=== PATIENT | male | born 1975 | race Caucasian/White ===

== ENCOUNTER 2017-01-29 14:38 | Observation (INO) | payer BC ==
[2017-01-29] MEDS ORDERED: MORPHINE SULFATE 10 MG/ML INJ IV ONE (15:25)
[2017-01-29] MEDS ORDERED: NORMAL SALINE 1000 ML 1,000 ML IV ONE (15:25)
--- NOTE | 2017-01-29 15:26 | ER Document Report ---
ED Medical Screen (RME) - General Chief Complaint: Abdominal Pain Stated Complaint: ABDOMINAL PAIN Time Seen by Provider: 01/29/17 15:24 Notes: Patient states he was sent here by his primary care doctor. He states he has had bloating and abdominal pain with vomiting and diarrhea for several days. He states an x-ray was done at his doctor's office and he was told by his physician that he may have a bowel obstruction. He is told that he was to come the emergency department for a abdominal CT scan. TRAVEL OUTSIDE OF THE [place] IN LAST 30 DAYS: No - Related Data Allergies/Adverse Reactions: No Known Allergies Allergy (Verified 01/29/17 14:38) Past Medical History - Social History Chew tobacco use (# tins/day): Yes Frequency of alcohol use: None Drug Abuse: None Renal/ Medical History: Denies: Hx Peritoneal Dialysis Physical Exam - Vital signs Vitals: Temp Pulse Resp BP Pulse Ox 99.4 F 88 20 136/97 H 94 01/29/17 14:44 01/29/17 14:44 01/29/17 14:44 01/29/17 14:44 01/29/17 14:44 Course - Vital Signs Vital signs: Temp Pulse Resp BP Pulse Ox 99.4 F 88 20 136/97 H 94 01/29/17 14:44 01/29/17 14:44 01/29/17 14:44 01/29/17 14:44 01/29/17 14:44
[2017-01-29] MEDS ORDERED: ONDANSETRON HCL INJ/PF 4 MG/2 ML SDV IV ONE (15:44)
[2017-01-29 16:06] LABS: ABSOLUTE BASOPHILS # (AUTO) 0.1 10^3/uL (0.0-0.2); ABSOLUTE EOSINOPHILS # (AUTO) 0.1 10^3/uL (0.0-0.6); ABSOLUTE LYMPHOCYTES (AUTO) 1.7 10^3/uL (0.5-4.7); ABSOLUTE MONOCYTES (AUTO) 0.9 10^3/uL (0.1-1.4); ABSOLUTE NEUT (AUTO) 10.3 10^3/uL (1.7-8.2); BASOPHILS % (AUTO) 0.4 % (0-2); EOSINOPHILS % (AUTO) 0.4 % (0-6); LYMPHOCYTES % (AUTO) 13.4 % (13-45); MEAN CORPUSCULAR HGB CONC 34.7 g/dL (32.0-36.0); MEAN CORPUSCULAR VOLUME 87 fl (80-97); MONOCYTES % (AUTO) 7.1 % (3-13); RED BLOOD COUNT 5.66 10^6/uL (4.35-5.55); RED CELL DISTRIBUTION WIDTH 13.7 % (11.5-14.0); SEGMENTED NEUTROPHILS % (AUTO) 78.7 % (42-78)
[2017-01-29] MEDS ORDERED: NORMAL SALINE 1000 ML 1,000 ML IV PRN ×3 (16:16→19:46)
--- NOTE | 2017-01-29 16:19 | ER Document Report ---
ED GI/ - General Chief Complaint: Abdominal Pain Stated Complaint: ABDOMINAL PAIN Time Seen by Provider: 01/29/17 15:24 Notes: 41 years old male presents today with over 24 hours of nausea vomiting multiple times. And also had diarrhea multiple times. Seen by the primary care physician had a abdominal x-ray done, the suspected bowel obstruction therefore he was sent over to ED. He denies any fever chills. Having on and off abdominal pain. Denies any dysuria frequency urgency. TRAVEL OUTSIDE OF THE [place] IN LAST 30 DAYS: No - Related Data Allergies/Adverse Reactions: pseudoephedrine Allergy (Verified 01/29/17 16:37) acetaminophen [From Percocet] Adverse Reaction (Verified 01/29/17 16:36) oxycodone [From Percocet] Adverse Reaction (Verified 01/29/17 16:37) Past Medical History - Social History Smoking Status: Never Smoker Chew tobacco use (# tins/day): Yes Frequency of alcohol use: None Drug Abuse: None Family History: Other - Kidney stones Patient has suicidal ideation: No Patient has homicidal ideation: No Renal/ Medical History: Denies: Hx Peritoneal Dialysis Review of Systems - Review of Systems Notes: REVIEW OF SYSTEMS: CONSTITUTIONAL : Denies fever, chills, or sweats. Denies recent illness. EENT: Denies eye, ear, throat, or mouth pain or symptoms. Denies nasal or sinus congestion or discharge. Denies throat, tongue, or mouth swelling or difficulty swallowing. CARDIOVASCULAR: Denies chest pain. Denies palpitations or racing or irregular heart beat. Denies ankle edema. RESPIRATORY: Denies cough, cold, or chest congestion. Denies shortness of breath, difficulty breathing, or wheezing. GASTROINTESTINAL: Denies abdominal pain or distention. Denies nausea, vomiting , or diarrhea. Denies blood in vomitus, stools, or per rectum. Denies black, tarry stools. Denies constipation. GENITOURINARY: Denies difficulty urinating, painful urination, burning, frequency, blood in urine, or discharge. MUSCULOSKELETAL: Denies back or neck pain or stiffness. Denies joint pain or swelling. SKIN: Denies rash, lesions or sores. HEMATOLOGIC : Denies easy bruising or bleeding. LYMPHATIC: Denies swollen, enlarged glands. NEUROLOGICAL: Denies confusion or altered mental status. Denies passing out or loss of consciousness. Denies dizziness or lightheadedness. Denies headache. Denies weakness or paralysis or loss of use of either side. Denies problems with gait or speech. Denies sensory loss, numbness, or tingling. Denies seizures. PSYCHIATRIC: Denies anxiety or stress. Denies depression, suicidal ideation, or homicidal ideation. ALL OTHER SYSTEMS REVIEWED AND NEGATIVE. Dictation was performed using [employer] voice recognition software PHYSICAL EXAMINATION: GENERAL: Well-appearing, well-nourished and in no acute distress. Obese seems to be in mild to moderate discomfort HEAD: Atraumatic, normocephalic. EYES: Pupils equal round and reactive to light, extraocular movements intact, sclera anicteric, conjunctiva are normal. ENT: Nares patent, oropharynx clear without exudates. Moist mucous membranes. NECK: Normal range of motion, supple without lymphadenopathy LUNGS: Breath sounds clear to auscultation bilaterally and equal. No wheezes rales or rhonchi. HEART: Regular rate and rhythm without murmurs ABDOMEN: Soft, diffuse mild tenderness, positive bowel sounds in all 4 quadrants., nondistended abdomen. No guarding, no rebound. No masses appreciated. Musculoskeletal: Normal range of motion, no pitting or edema. No cyanosis. NEUROLOGICAL: Cranial nerves grossly intact. Normal speech, normal gait. Normal sensory, motor exams PSYCH: Normal mood, normal affect. SKIN: Warm, Dry, normal turgor, no rashes or lesions noted. Physical Exam - Vital signs Vitals: Temp Pulse Resp BP Pulse Ox 99.4 F 88 20 136/97 H 94 01/29/17 14:44 01/29/17 14:44 01/29/17 14:44 01/29/17 14:44 01/29/17 14:44 Course - Re-evaluation Re-evalutation: 01/29/17 19:[address] care consultant [address] Ronaldo Vizcarra called and case was discussed. - Vital Signs Vital signs: Temp Pulse Resp BP Pulse Ox 99.4 F 88 20 136/97 H 94 01/29/17 14:44 01/29/17 14:44 01/29/17 14:44 01/29/17 14:44 01/29/17 14:44 - Laboratory Result Diagrams: 01/29/17 15:44 01/29/17 16:28 Laboratory results interpreted by me: 01/29/17 01/29/17 15:44 16:28 WBC 13.0 H RBC 5.66 H Seg Neutrophils % 78.7 H Absolute Neutrophils 10.3 H Sodium 136.1 L Chloride 97 L Glucose 115 H - Diagnostic Test Radiology results interpreted by me: 01/29/17 19:10 Radiological report was reviewed, it indicates proximal bowel obstruction. Discharge - Discharge Clinical Impression: Vomiting Bowel obstruction Qualifiers: Intestinal obstruction type: unspecified Intestinal obstruction extent: complete Qualified Code(s): K56.601 - Complete intestinal obstruction, unspecified as to cause Disposition: ADMITTED INPATIENT Admitting Provider: Surgicalist Unit Admitted: Surgical Floor
--- NOTE | 2017-01-29 16:20 | RADIOLOGY REPORT (SQ) ---
EXAM DESCRIPTION: CT ABD/PELVIS WITH IV ONLY COMPLETED DATE/TIME: 01/29/2017 4:06 pm REASON FOR STUDY: abd pain COMPARISON: 06/26/2015. TECHNIQUE: CT scan of the abdomen and pelvis performed using helical scanning technique with dynamic intravenous contrast injection. No oral contrast. Images reviewed with lung, soft tissue, and bone windows. Reconstructed coronal and sagittal MPR images reviewed. Delayed images for evaluation of the urinary system also acquired. All images stored on PACS. All CT scanners at this facility use dose modulation, iterative reconstruction, and/or weight based d osing when appropriate to reduce radiation dose to as low as reasonably achievable (ALARA). [facility]: Dose Right [facility]: CareDose [facility]: Dose Right [facility]: Teradose 4D [facility]: One Season CONTRAST TYPE AND DOSE: contrast/concentration: Isovue 370.00 mg/ml; Total Contrast Delivered: 100.0 ml; Total Saline Delivered: 43.0 ml RENAL FUNCTION: None required. The patient is less than 50 years old. RADIATION DOSE: CT Rad equipment meets quality standard of care and radiation dose reduction techniq ues were employed. CTDIvol: 20.0 - 21.1 mGy. DLP: 2481 mGy-cm.. LIMITATIONS: None. FINDINGS: LOWER CHEST: No significant findings. No nodules or infiltrates. LIVER: Normal size. No masses. No dilated ducts. SPLEEN: Normal size. No focal lesions. PANCREAS: No masses. No significant calcifications. No adjacent inflammation or peripancreatic fluid collections. Pancreatic duct not dilated. GALLBLADDER: No identified stones by CT criteria. No inflammatory changes to suggest cholecystitis. ADRENAL GLANDS: No significant masses or asymmetry. RIGHT KIDNEY AND URETER: No solid masses. No significant calcifications. No hydronephrosis or hyd roureter. LEFT KIDNEY AND URETER: No solid masses. No significant calcifications. No hydronephrosis or hydr oureter. AORTA AND VESSELS: No aneurysm. No dissection. Renal arteries, SMA, celiac without stenosis. RETROPERITONEUM: No retroperitoneal adenopathy, hemorrhage or masses. BOWEL AND PERITONEAL CAVITY: Dilated proximal small bowel. Nondilated distal small bowel. No masses or inflammatory changes. No free fluid or peritoneal masses. APPENDIX: Normal. PELVIS: No mass. No free fluid. Normal bladder. ABDOMINAL WALL: No masses. No hernias. BONES: No significant or acute findings. OTHER: No other significant finding. IMPRESSION: 1. DILATED PROXIMAL SMALL BOWEL CONSISTENT WITH MECHANICAL OBSTRUCTION. NO OBVIOUS ETIOLOGY. 2. NO OTHER SIGNIFICANT OR ACUTE FINDING IN THE ABDOMEN OR PELVIS ON CT SCAN WITH IV CONTRAST. TECHNICAL DOCUMENTATION: JOB ID: [id number] Quality ID # [id number]: Final reports with documentation of one or more dose reduction techniques (e.g., Au tomated exposure control, adjustment of the mA and/or kV according to patient size, use of iterative reconstruction technique) 2010 [employer]- All Rights Reserved
[2017-01-29 16:56] LABS: ALANINE AMINOTRANSFERASE 46 U/L (21-72); ALBUMIN 4.1 g/dL (3.5-5.0); ALKALINE PHOSPHATASE 73 U/L (38-126); ANION GAP 14 (5-19); ASPARTATE AMINO TRANSFERASE 19 U/L (17-59); BILIRUBIN,DIRECT 0.2 mg/dL (0.0-0.4); BILIRUBIN,TOTAL 0.4 mg/dL (0.2-1.3); BLOOD UREA NITROGEN 12 mg/dL (7-20); CALCIUM 9.5 mg/dL (8.4-10.2); CARBON DIOXIDE 25 mmol/L (22-30); CHLORIDE 97 mmol/L (98-107); CREATININE RESULT 1.04 mg/dL (0.52-1.25); GLUCOSE 115 mg/dL (75-110); POTASSIUM 4.2 mmol/L (3.6-5.0); SODIUM 136.1 mmol/L (137-145); TOTAL PROTEIN 6.7 g/dL (6.3-8.2)
[2017-01-29] MEDS ORDERED: ONDANSETRON 4 MG TAB.RAPDIS PO PRN (19:46)
[2017-01-29] MEDS ORDERED: MORPHINE SULFATE 10 MG/ML INJ IV PRN (19:51)
--- NOTE | 2017-01-29 20:00 | PDOC H&P ---
History of Present Illness Admission Date/PCP: 01/29/17 19:30 FALLON GRIER MD Patient complains of: Abdominal pain History of Present Illness: HAZEL PETERS is a 41 year old male who awoke 2 nights ago with nausea and vomiting and profuse diarrhea. Patient had multiple episodes of emesis as well as multiple episodes of diarrhea yesterday. It finally stopped last night and he was able to sleep. However he awoke with diffuse abdominal burning type of pain that was persistent and he subsequently was seen by his primary care physician and subsequently referred to the ER. He has been passing gas today but no diarrhea. No emesis today. he has been able to keep liquids down today. No fever. No other family members sick. He has had no prior abdominal surgeries and he has no prior gastrointestinal problems. He denies any alcohol abuse denies any NSAID abuse although he does take Motrin on occasion for headaches. No signs or symptoms of gastrointestinal bleed. Since arrival in the ER and receiving IV pain medication the abdominal pain has almost completely resolved. He does not feel bloated. Past Medical History Cardiac Medical History: Reports: None Pulmonary Medical History: Reports: None Neurological Medical History: Reports: None Endocrine Medical History: Reports: None Renal/ Medical History: Reports: Nephrolithiasis Malignancy Medical History: Reports: None GI Medical History: Reports: None Psychiatric Medical History: Reports: None Hematology: Reports: None Infectious Medical History: Reports: None Past Surgical History Past Surgical History: Reports: None Social History Smoking Status: Never Smoker Frequency of Alcohol Use: Rare Family History Family History: Other - Kidney stones Parental Family History Reviewed: No Children Family History Reviewed: No Sibling(s) Family History Reviewed.: No Medication/Allergy Allergies/Adverse Reactions: pseudoephedrine Allergy (Verified 01/29/17 16:37) acetaminophen [From Percocet] Adverse Reaction (Verified 01/29/17 16:36) oxycodone [From Percocet] Adverse Reaction (Verified 01/29/17 16:37) Physical Exam Vital Signs: Temp Pulse Resp BP Pulse Ox 99.4 F 88 20 136/97 H 94 01/29/17 14:44 01/29/17 14:44 01/29/17 14:44 01/29/17 14:44 01/29/17 14:44 General appearance: PRESENT: no acute distress, cooperative Eye exam: PRESENT: conjunctiva pink Neck exam: PRESENT: other - Supple and nontender. Respiratory exam: PRESENT: clear to auscultation marco a Cardiovascular exam: PRESENT: RRR GI/Abdominal exam: PRESENT: other - Soft, nondistended, very mild diffuse abdominal tenderness without peritoneal signs. No hernias palpable. Extremities exam: PRESENT: other - No swelling. No rash. Neurological exam: PRESENT: alert, awake Psychiatric exam: PRESENT: appropriate affect Skin exam: PRESENT: warm Results Impressions: Abdomen/Pelvis CT 01/29/17 15:25 IMPRESSION: 1. DILATED PROXIMAL SMALL BOWEL CONSISTENT WITH MECHANICAL OBSTRUCTION. NO OBVIOUS ETIOLOGY. 2. NO OTHER SIGNIFICANT OR ACUTE FINDING IN THE ABDOMEN OR PELVIS ON CT SCAN WITH IV CONTRAST. Assessment & Plan - Diagnosis (1) Gastroenteritis Is this a current diagnosis for this admission?: Yes Plan: Most likely gastroenteritis. Although CT scan demonstrated dilated loops of proximal small bowel with decompressed distal small bowel there is no distinct transition point and no evidence of intestinal compromise and no free air and no free fluid. He has had nausea and vomiting as well as profuse diarrhea yesterday and has been passing gas today and has been tolerating liquids today- - all evidence that he does not have a bowel obstruction. However with the radiologist reading of possible mechanical bowel obstruction I feel that the most safe course of action would be to admit the patient for IV fluids and observation. Will repeat exam and check an abdominal x-ray in the morning.
[2017-01-29] MEDS ORDERED: LANSOPRAZOLE 30 MG TAB.RAP.DR PO ONE (20:30)
[2017-01-29] MEDS ORDERED: ZOLPIDEM TARTRATE 5 MG TABLET PO ONE (23:45)
[2017-01-30] MEDS: LANSOPRAZOLE 30 MG TAB.RAP.DR PO SCH ×2 (05:24→16:29)
[2017-01-30 06:47] LABS: HGB HCT DIFFERENCE 1.7; MEAN CORPUSCULAR HGB CONC 34.5 g/dL (32.0-36.0); MEAN CORPUSCULAR VOLUME 87 fl (80-97); RED BLOOD COUNT 4.95 10^6/uL (4.35-5.55); WHITE BLOOD COUNT 9.5 10^3/uL (4.0-10.5)
[2017-01-30 06:50] LABS: HEMOGLOBIN 14.9 g/dL (13.5-17.0)
[2017-01-30 07:00] LABS: ANION GAP 11 (5-19); BLOOD UREA NITROGEN 11 mg/dL (7-20); CARBON DIOXIDE 23 mmol/L (22-30); CHLORIDE 106 mmol/L (98-107); CREATININE RESULT 0.98 mg/dL (0.52-1.25); GLUCOSE 93 mg/dL (75-110); POTASSIUM 4.1 mmol/L (3.6-5.0); SODIUM 139.5 mmol/L (137-145)
--- NOTE | 2017-01-30 09:41 | RADIOLOGY REPORT (SQ) ---
EXAM DESCRIPTION: ABDOMEN 2 VIEWS COMPLETED DATE/TIME: 01/30/2017 8:36 am REASON FOR STUDY: r/o sbo COMPARISON: CT 01/29/2017. NUMBER OF VIEWS: Two views. TECHNIQUE: Supine and erect/decubitus radiographic images of the abdomen acquired. LIMITATIONS: None. FINDINGS: FREE AIR: None. No abnormal gas collections. LUNG BASES: Limited evaluation. Extreme bases clear. BOWEL GAS PATTERN: Gaseous distension of proximal to mid small bowel loops. Multiple gas-filled loop s with several air-fluid levels. The colon is decompressed with stool throughout, mild. CALCIFICATIONS: No suspicious calcifications. SOFT TISSUES: No gross mass or suggestion of organomegaly. HARDWARE: None in the abdomen. BONES: No acute fracture. No worrisome bone lesions. OTHER: No other significant finding. IMPRESSION: 1. Distended small bowel loops. Similar distribution and appearance compared to yesterd ay's CT, this remains consistent with small bowel obstruction. TECHNICAL DOCUMENTATION: JOB ID: [id number] [employer]- All Rights Reserved
[2017-01-30] MEDS: ENOXAPARIN SODIUM INJ 40 MG/0.4 ML DISP.SYRIN SUBCUT SCH (11:19)
[2017-01-30] MEDS ORDERED: DEXTROSE 50%-WATER 25 GM/50 ML DISP.SYRIN IV PRN ×2 (12:49)
[2017-01-30] MEDS ORDERED: GLUCAGON,HUMAN RECOMB 1 MG INJ SUBCUT PRN (12:49)
[2017-01-30] MEDS ORDERED: DEXTROSE 40% GEL 15 GM TUBE PO PRN ×2 (12:49)
--- NOTE | 2017-01-30 18:04 | PDOC PROGRESS REPORT ---
Subjective Progress Note for:: 01/30/17 Subjective:: passing flatus Reason For Visit: GASTROENTERITIS POSSIBLE BOWEL OBSTRUCTION Physical Exam Vital Signs: Temp Pulse Resp BP Pulse Ox 99.0 F 70 16 125/81 96 01/30/17 15:37 01/30/17 15:37 01/30/17 15:37 01/30/17 15:37 01/30/17 15:37 Intake & Output 01/29/17 01/30/17 01/31/17 06:59 06:59 06:59 Intake Total 0 120 Balance 0 120 Weight 120.5 kg Exam: abdomen slightly distended but soft with mild diffuse tenderness. KUB showed still SBO Results Laboratory Results: 01/30/17 06:19 01/30/17 06:19 01/30/17 01/30/17 06:19 06:19 WBC 9.5 RBC 4.95 Hgb 14.9 D Hct 43.0 MCV 87 MCH 30.0 MCHC 34.5 RDW 14.0 Plt Count 209 Sodium 139.5 Potassium 4.1 Chloride 106 Carbon Dioxide 23 Anion Gap 11 BUN 11 Creatinine 0.98 Est GFR ( Amer) > 60 Est GFR (Non-Af Amer) > 60 Glucose 93 Calcium 9.0 Impressions: Abdomen/Pelvis CT 01/29/17 15:25 IMPRESSION: 1. DILATED PROXIMAL SMALL BOWEL CONSISTENT WITH MECHANICAL OBSTRUCTION. NO OBVIOUS ETIOLOGY. 2. NO OTHER SIGNIFICANT OR ACUTE FINDING IN THE ABDOMEN OR PELVIS ON CT SCAN WITH IV CONTRAST. Abdomen X-Ray 01/30/17 07:00 IMPRESSION: 1. Distended small bowel loops. Similar distribution and appearance compared to yesterday's CT, this remains consistent with small bowel obstruction. Assessment & Plan - Time Time Spent with patient: 15-24 minutes - Inpatient Certification Medical Necessity: Need For IV Fluids, Need for Pain Control - Plan Summary Plan Summary: Unable to tolerate clears because of abdominal pains. Put back on NPO KUB still shows SBO though patient claims passing flatus. Re-evaluate in am. Possible gastrograffin SBFT tomorrow if still with and discomfort
[2017-01-30] MEDS ORDERED: LANSOPRAZOLE 30 MG TAB.RAP.DR PO ONE (19:00)
[2017-01-30] MEDS: PANTOPRAZOLE SODIUM 40 MG VIAL IV SCH (21:27)
[2017-01-30] MEDS ORDERED: ZOLPIDEM TARTRATE 5 MG TABLET PO ONE (22:00)
[2017-01-31] MEDS: LANSOPRAZOLE 30 MG TAB.RAP.DR PO SCH ×2 (05:10→16:54)
[2017-01-31] MEDS: PANTOPRAZOLE SODIUM 40 MG VIAL IV SCH ×2 (09:18→21:13)
[2017-01-31] MEDS: ENOXAPARIN SODIUM INJ 40 MG/0.4 ML DISP.SYRIN SUBCUT SCH (09:21)
--- NOTE | 2017-01-31 11:23 | PDOC PROGRESS REPORT ---
Subjective Progress Note for:: 01/31/17 Reason For Visit: GASTROENTERITIS POSSIBLE BOWEL OBSTRUCTION This is hospital day 4 for the patient who had some abdominal discomfort after starting clear liquids so we went back to n.p.o. status. He received Protonix and feels better. He is up ambulating in the halls. He has no complaints now. Physical Exam Vital Signs: Temp Pulse Resp BP Pulse Ox 98.7 F 66 18 139/95 H 97 01/31/17 07:38 01/31/17 07:38 01/31/17 07:38 01/31/17 07:38 01/31/17 07:38 Intake & Output 01/30/17 01/31/17 02/01/17 06:59 06:59 06:59 Intake Total 0 120 Balance 0 120 Weight 120.5 kg 120.5 kg General appearance: PRESENT: no acute distress GI/Abdominal exam: PRESENT: other - Abdomen soft benign no peritoneal signs no rigidity. Results Laboratory Results: 01/30/17 06:19 01/30/17 06:19 Impressions: Abdomen/Pelvis CT 01/29/17 15:25 IMPRESSION: 1. DILATED PROXIMAL SMALL BOWEL CONSISTENT WITH MECHANICAL OBSTRUCTION. NO OBVIOUS ETIOLOGY. 2. NO OTHER SIGNIFICANT OR ACUTE FINDING IN THE ABDOMEN OR PELVIS ON CT SCAN WITH IV CONTRAST. Abdomen X-Ray 01/30/17 07:00 IMPRESSION: 1. Distended small bowel loops. Similar distribution and appearance compared to yesterday's CT, this remains consistent with small bowel obstruction. Assessment & Plan - Diagnosis (1) Gastroenteritis Is this a current diagnosis for this admission?: Yes Plan: Clinically improving based on symptom complex, and physical examination. Recommendations: 1. Resume clear liquid diet 2. No indication for further intervention, diagnostic studies at this time. 3. Spent a long time speaking the patient and his family about the provisional diagnosis of gastroenteritis; this is not a surgical diagnosis but we are here to help take care of the patient under the current conditions. Patient may end up following up with gastroenterology after discharge home, hopefully tomorrow.
[2017-02-01] MEDS: LANSOPRAZOLE 30 MG TAB.RAP.DR PO SCH (05:32)
[2017-02-01 08:31] VITALS: BP 118/87
[2017-02-01] MEDS: PANTOPRAZOLE SODIUM 40 MG VIAL IV SCH (10:04)
[2017-02-01] MEDS: ENOXAPARIN SODIUM INJ 40 MG/0.4 ML DISP.SYRIN SUBCUT SCH (10:05)
--- NOTE | 2017-02-01 11:08 | DISCHARGE SUMMARY E ---
Discharge Summary NAME: HAZEL PETERS : 1975 AGE: 41Y ADMITTED: 01/29/2017 DISCHARGED: 02/01/2017 REASON FOR ADMISSION: Abdominal pain, nausea, vomiting, diarrhea. SUMMARY OF HOSPITALIZATION: The patient is a 41-year-old white male with history of abdominal pain, nausea and vomiting. He was seen at an outlying institution, evaluated and sent to [facility] for a CT scan of the abdomen and pelvis. He was found to have evidence of a partial small obstruction and was admitted to the surgical service for management. Past medical, surgical, personal and family history can be found in History and Physical document. The patient was kept NPO on IV fluids and clinically improved. CT scan was reviewed. This was a limited study due to absence of oral contrast. He continued to have a lot of diarrhea and gas. He started on Protonix and this improved. Slowly the patient's diet was advanced and he tolerated this well. His white count on admission was 13,000 and it came down to 9,000. Electrolytes stabilized. By the fourth hospital day, he was felt to have reached maximum benefit hospitalization and was discharged home. FINAL DIAGNOSIS: Probable gastroenteritis, resolved. DISPOSITION: Patient was discharged home in the care of his family. Followup with primary care as previously scheduled. He can follow up with the hospital surgical clinic on an as needed basis. DICTATING PHYSICIAN: JOSE L TIWARI M.D. [id number] PHY#: [id number] ID: [id number] JOB#: [id number] ACCT: [id number] cc:Jonathan HERNANDEZ M.D. >
== END 2017-02-01 11:15 | disposition home or self-care (01) ==
LOC: ER 14:38 → EH 19:30 → INTOOBSV 19:30 → 5 21:07
PROVIDERS: ATTEND Surgery
DX: K56.699 Other intestinal obstruction unspecified as to partial versus complete obstruction (principal); Z87.442 Personal history of urinary calculi; Z84.1 Family history of disorders of kidney and ureter
CPT/HCPCS: 99285; 96361; 96374; 96375; 36415 ×2; 85025; 85027; 80048; 80053; 74020; 74177; J2270; J1650; S0164 ×3; J3490 ×2; J2405; J7030 ×2